=== PATIENT | male | born 1940 | race Caucasian/White ===

== ENCOUNTER 2019-02-15 14:39 | Emergency (ER) | payer OTHER, MEDICARE, SELFPAY ==
[2019-02-15 14:42] VITALS: BP 150/87; PULSE 78; RESP 14; TEMP 36.2; O2SAT 96; BMI 23.1
--- NOTE | 2019-02-15 17:26 | ED_ITS ---
HPI - Wound/Laceration General Chief Complaint: Wound/Laceration Stated Complaint: Tripped and fell at docks Time Seen by Provider: 02/15/19 16:37 Source: patient and EMS Mode of arrival: EMS Limitations: no limitations History of Present Illness HPI narrative: This is a 79-year-old male who comes to the emergency department with complaint of laceration to the left upper lip. Patient was walking on 1 of the docks when he tripped and fell forward into a wooden stair, he did not brace himself with his arms because he was carrying boxes. He lacerated his upper lip through and through. Patient denies any other injury, he denies any dental injury he states his teeth do not really hurt and they are not weekly easy, he denies any facial pain, he denies any headache, neck pain, back pain, injuries to his upper lower extremities other than some very mild elbow pain and he thinks he might have a bruise. He is able to fully move his elbow without issue. Patient denies any other medical issues, denies any surgeries. He states his tetanus is up-to-date. Patient is sailing on his own. He is planning to see a back to [place] and leaving on Monday. Related Data Previous Rx's Medication Instructions Recorded cephalexin [Keflex] 500 mg PO QID 5 Days #20 cap 02/15/19 Allergies Allergy/AdvReac Type Severity Reaction Status Date / Time No Known Drug Allergies Allergy Verified 02/15/19 14:42 Review of Systems Review of Systems ROS Unobtainable: All systems reviewed & are unremarkable except as noted in HPI and below Constitutional Denies headache(s) ENT Ears, Nose, Mouth, and Throat: Reports as per HPI, Denies dental pain, Denies dizziness, Denies facial pain (Other than lip), Denies headache(s), Denies hoarseness, Denies neck pain and Reports other (laceration to upper lip. ) Musculoskeletal Denies neck pain Neurologic Denies dizziness and Denies headache(s) PFSH Social History Smoking Status: Unknown if ever smoked Social History (Updated 02/15/19 @ 17:27 by Ellen Blackwell DO) details: Traveling on [employer], lives in [place]. Smoking Status: Unknown if ever smoked Exam Narrative Exam Narrative: GEN: Patient appears in mild distress. HEAD: See below, no raccoon/Quinonez sign. NECK: Nontender, painless range of motion, trachea midline Negative Nexus criteria, there is no mid line tenderness, distracting injury, altered mental status, neuro deficit, recent EtOH. EYES: PERRLA, EOMI ENT: Patient has lacerations to the left upper lip, the laceration is through the vermilion border and extends about a cm and half. The skin is somewhat macerated, the laceration is through and through there is subcutaneous tissue exposed, patient's dentition is nontender, there does not appear to be any l aceration to the gums, teeth are immobile with palpation, trachea is midline, TM's are normal no hemotypanum, Nares are clear, no septal hematoma, no dental or oral injury, airway is normal and with normal occlusion, No bony tenderness RESP: Chest is nontender and has symmetric movement, no ecchymosis, breath sounds are normal no crackles, wheezes or rales CVS: Heart sounds are normal, no murmur noted, No JVD. ABG/GI: Nontender, soft, normal bowel sounds, no distention, no organomegaly, pelvic rock is negative NEURO: Oriented AOx3, neuro is grossly intact, sensation and motor is normal all 4 extremities moving, cranial nerves II through XII are intact, GCS is 15 PSYCH: Normal mood and affect SKIN: Intact, warm and dry, no crepitus and without decubitus BACK: No CVA tenderness, no vertebral tenderness, no step-off's, no crepitus EXT: Atraumatic, hips are nontender, no pedal edema, normal color and temperature, normal range of motion of extremities with normal tendon exam, 2+ pulses in all four extremities Initial Vital Signs Initial Vital Signs: Vital Signs Temperature 97.2 F L 02/15/19 14:42 Pulse Rate 78 02/15/19 14:42 Respiratory Rate 14 02/15/19 14:42 Blood Pressure 150/87 H 02/15/19 14:42 Pulse Oximetry 96 02/15/19 14:42 Procedures Laceration Repair Laceration 1: Site: lip Side (If applicable): left (upper) Size (cm): 2 Description: irregular and involves radha border Depth: simple, single layer and involves muscle layer Local Anesthetic: lidocaine 1% Amount of anesthesia used (mL): 3 Skin layer closed with: vicryl Size (cm): 5-0 Number of sutures: 6 Technique: simple, interrupted Subcutaneous layer closed with: vicryl Size: 5-0 Number of sutures: 1 Technique: other (horizontal mattress) Scores GCS Kiet coma scale eye opening: Spontaneous Orick coma scale verbal response: Orientated Orick coma scale motor response: Obey commands Kiet coma scale total score: 15 Course Vital Signs - 8 hr 02/15/19 14:42 02/15/19 19:14 Temperature 97.2 F L Pulse Rate 78 67 Respiratory Rate 14 18 Blood Pressure 150/87 H 179/91 H Pulse Oximetry 96 97 MDM - Wound/Laceration MDM Narrative Medical decision making narrative: Patient has upper lip laceration, there is maceration so discussed with patient that likely he will need revision with [facility] or ENT at some point. He will definitely have a scar. Patient and I discussed he is planning to travel back to [place] on Monday. Patient tolerated procedure well. we discussed that he is likely to have a scar and there is concern about the lining up of the vermilion border as there is quite a bit of maceration to the edges. I discussed with Dr. Velasquez from ENT, he would like the patient to follow up Monday or Monday in the office. Patient was given contact number for the office for follow-up. We discussed that doctor in [place] stated he could get a vermilion plasty in the future if needed. Or other repair as needed. Patient was placed on Keflex for risk for infection. Patient defers any prescriptions for other pain medications. It was given anticpatory guidance was given for wound, cleaning, avoiding infection, ect. Discharge Plan Departure Patient Disposition: Home Clinical Impression: Laceration of upper lip, complicated Discharge Date/Time: 02/15/19 19:14 Interventions: ED Discharge Assessment Last Done: 02/15/19 19:14 Instructions: DI for Laceration Repair -- Complex Activity Restrictions/Additional Instructions: Call Monday for an appointment, follow up Monday and/or Monday for recheck and any further repair as needed. Wound Care: Keep wound(s) clean and dry. Wash daily with soap and water only. Take antibiotics until gone. Rinse her mouth after eating or drinking each time. Do not use over the counter products (alcohol or peroxide)on the wounds unless instructed by a physician. You may use triple antibiotic ointment twice daily. Start with a soft diet and advance as tolerated. Also swish and spit after meals until the inner lip is healed. If wound condition worsens (increased/expanding redness, developing fluid blisters, or worsening pain), either contact your doctor for an urgent re-ass essment , or return to the Emergency Department. Return to the Emergency Department for any new or worsening symptoms. Return if fever greater than 100.4 Fahrenheit, increased swelling, increasing p ain or worsening symptoms such as increased discharge or spreading redness. return if you are having sudden severe headaches, new facial pain, difficulty breathing, shortness of breath, chest pain or pressure, nausea or vomiting or other new or concerning symptoms. Prescriptions: New cephalexin [Keflex] 500 mg capsule 500 mg PO QID 5 Days Qty: 20 RF: 0 Referrals: Tarun Velasquez MD [Physician] - 02/18/19
--- NOTE | 2019-02-15 17:45 | PC.NURSE ---
2 cm laceration crossing the vermilion border on L side upper lip and deep laceration. Denies neck pain, GARCIA, N-V, vision change after the fall.
[2019-02-15 19:14] VITALS: BP 179/91; PULSE 67; RESP 18; O2SAT 97
== END 2019-02-15 19:14 | disposition home or self-care (01) ==
PROVIDERS: Emergency Provider Emergency Medicine
DX: S01.511A Laceration without foreign body of lip, initial encounter (principal); W19.XXXA Unspecified fall, initial encounter
CPT/HCPCS: 12051; 99283